=== PATIENT | female | born 1955 | race Asian ===

== ENCOUNTER 2019-06-26 07:45 | Emergency (ER) | payer OTHER ==
[~2019-06-26] VITALS: Ht 170.2 cm; Wt 72.6 kg
[2019-06-26] MEDS ORDERED: Lidocaine 1% Plain 30 ml INJ ONE (08:15)
--- NOTE | 2019-06-26 08:16 | NUR ---
ED Nurse Note: Pt walked into ED s/p fall from bed. Pt has wound on L forehead with scant bleeding. Pt is alert dn orientedx4, ambulatory. She denies LOC or dizziness. Denies cough, fever, SOB. Pt is set up on monitor and has been seen by MD. GARCIA.
--- NOTE | 2019-06-26 08:26 | NUR ---
ED Nurse Note: EKG completed and blood sent to lab.
[2019-06-26 08:27] VITALS: BP 114/50
[2019-06-26 09:02] LABS: BASOPHILS % (AUTO) 1.3 % (0.0-2.0); EOSINOPHILS % (AUTO) 2.8 % (0.0-3.0); HEMATOCRIT 38.1 % (37.0-47.0); HEMOGLOBIN 12.8 G/DL (12.0-16.0); LYMPHOCYTES % (AUTO) 19.6 % (20.0-45.0); MEAN CORPUSCULAR VOLUME 90 FL (80-99); NEUTROPHILS % (AUTO) 68.3 % (45.0-75.0); PLATELET COUNT 139 K/UL (150-450); RED BLOOD COUNT 4.24 M/UL (4.20-5.40); RED CELL DISTRIBUTION WIDTH 12.6 % (11.6-14.8); WHITE BLOOD COUNT 5.4 K/UL (4.8-10.8)
[2019-06-26 09:14] LABS: INR 0.9 (0.9-1.1)
--- NOTE | 2019-06-26 09:25 | Emergency Room Report ---
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 Denies any visual changes denies any focal weakness Patient describes a fairly purely mechanical fall in nature Allergies: Coded Allergies: CITRIC ACID (Verified Allergy, Unknown, 06/26/19) MILK (Verified Allergy, Unknown, 06/26/19) Wheat (Verified Allergy, Unknown, 06/26/19) COVID-19 Screening Contact w/high risk pt: No Recent Travel to affected area: No Experienced COVID-19 symptoms?: No Patient History Past Medical History: see triage record Last Menstrual Period: 20 years ago Reviewed Nursing Documentation: PMH: Agreed; PSxH: Agreed Nursing Documentation-PMH Past Medical History: No History, Except For History Of Psychiatric Problem: Yes - depression Review of Systems All Other Systems: negative except mentioned in HPI Physical Exam Vital Signs Date Time Temp Pulse Resp B/P (MAP) Pulse Ox O2 Delivery O2 Flow Rate FiO2 06/26/19 08:08 98.6 72 12 117/52 (73) 100 Room Air 06/26/19 08:27 97 Sp02 EP Interpretation: reviewed, normal General Appearance: well appearing Head: other - Approximately 2 cm laceration V-shaped in the left temporal area , associated ecchymosis and swelling Eyes: bilateral eye PERRL ENT: EOM grossly intact Neck: supple Respiratory: lungs clear, no respiratory distress, no retraction Cardiovascular #1: regular rate, rhythm Gastrointestinal: non tender, soft Musculoskeletal: normal inspection Neurologic: alert, oriented x3 Psychiatric: normal inspection Skin: other - As above approximately 2 cm laceration left temporal area Lymphatic: no adenopathy Procedures Laceration/Wound Repair Laceration/Wound Repair : Consent: Emergent Wound Location: face Wound's Depth, Shape: into muscle Wound Length (cm): 2 Wound Explored: clean Irrigated w/ Saline (ccs): 200 Betadine Prep?: Yes Anesthesia: 1% Lidocaine Volume Anesthetic (ccs): 4 Wound Debrided: minimal Wound Repaired With: sutures Suture Size/Type: 6:0 Number of Sutures: 7 Layer Closure?: No Patient Tolerated: Well Complications: None Progress Fairly complex laceration in a V-shaped just above the eyebrow involving the facial region as well,, patient tolerated the procedure well and we had good approximation Medical Decision Making Diagnostic Impression: Primary Impression: Head injury Additional Impression: Laceration ER Course Given the patient's history and presentation multiple differentials including but not limited to cardiac, neurological neurosurgical differentials entertained , Patient has significant trauma to the facial area also involving the temporal area with associated hematoma I felt that given her presentation age In the examination she requires CT imaging of the brain CT head does not show any acute process Patient's blood work is also appropriate laceration was repaired as noted above Patient remains neurologically oriented and appropriate throughout her stay She is staying with 2 family members at this time and is stable for close outpatient follow-up Labs Test 06/26/19 08:25 White Blood Count 5.4 K/UL (4.8-10.8) Red Blood Count 4.24 M/UL (4.20-5.40) Hemoglobin 12.8 G/DL (12.0-16.0) Hematocrit 38.1 % (37.0-47.0) Mean Corpuscular Volume 90 FL (80-99) Mean Corpuscular Hemoglobin 30.1 PG (27.0-31.0) Mean Corpuscular Hemoglobin Concent 33.4 G/DL (32.0-36.0) Red Cell Distribution Width 12.6 % (11.6-14.8) Platelet Count 139 K/UL (150-450) Mean Platelet Volume 6.6 FL (6.5-10.1) Neutrophils (%) (Auto) 68.3 % (45.0-75.0) Lymphocytes (%) (Auto) 19.6 % (20.0-45.0) Monocytes (%) (Auto) 8.0 % (1.0-10.0) Eosinophils (%) (Auto) 2.8 % (0.0-3.0) Basophils (%) (Auto) 1.3 % (0.0-2.0) Prothrombin Time 9.8 SEC (9.30-11.50) Prothromb Time International Ratio 0.9 (0.9-1.1) Sodium Level 140 MMOL/L (136-145) Potassium Level 3.8 MMOL/L (3.5-5.1) Chloride Level 103 MMOL/L (98-107) Carbon Dioxide Level 28 MMOL/L (21-32) Anion Gap 9 mmol/L (5-15) Blood Urea Nitrogen 17 mg/dL (7-18) Creatinine 0.8 MG/DL (0.55-1.30) Estimat Glomerular Filtration Rate > 60 mL/min (>60) Glucose Level 92 MG/DL (74-106) Calcium Level 9.1 MG/DL (8.5-10.1) Total Bilirubin 0.7 MG/DL (0.2-1.0) Aspartate Amino Transf (AST/SGOT) 22 U/L (15-37) Alanine Aminotransferase (ALT/SGPT) 23 U/L (12-78) Alkaline Phosphatase 78 U/L (46-116) Total Protein 7.9 G/DL (6.4-8.2) Albumin 3.6 G/DL (3.4-5.0) Globulin 4.3 g/dL Albumin/Globulin Ratio 0.8 (1.0-2.7) Rhythm Strip Diag. Results EP Interpretation: yes Rate: 77 Rhythm: NSR, no PVC's, no ectopy CT/MRI/US Diagnostic Results CT/MRI/US Diagnostic Results : Impression CT headIMPRESSION: No acute findings in the head/brain. Last Vital Signs Date Time Temp Pulse Resp B/P (MAP) Pulse Ox O2 Delivery O2 Flow Rate FiO2 06/26/19 08:27 75 14 Room Air 97 06/26/19 08:27 98.6 114/50 97 Status: improved Disposition: HOME, SELF-CARE Condition: Improved Scripts Cephalexin* (KEFLEX*) 500 Mg Capsule 500 MG ORAL EVERY 8 HOURS for 7 Days, CAP Prov: Chun Rodriguez DO 06/26/19 Referrals: NON PHYSICIAN (PCP) Additional Instructions: Patient is provided with the discharge instructions notified to follow up with primary doctor in the next 2-3 days otherwise return to the er with any worsening symptoms. Please note that this report is being documented using [employer] technology. This can lead to erroneous entry secondary to incorrect interpretation by the dictating instrument. Chun Rodriguez DO Jun 26, 2019 09:25
--- NOTE | 2019-06-26 09:26 | NUR ---
ED Nurse Note: Pt taken to CT.
[2019-06-26] MEDS ORDERED: Bacitracin Oint UD TOPIC ONE (09:30)
[2019-06-26 09:33] LABS: ANION GAP 9 mmol/L (5-15); BLOOD UREA NITROGEN 17 mg/dL (7-18); CALCIUM 9.1 MG/DL (8.5-10.1); CARBON DIOXIDE 28 MMOL/L (21-32); CHLORIDE 103 MMOL/L (98-107); CREATININE 0.8 MG/DL (0.55-1.30); POTASSIUM 3.8 MMOL/L (3.5-5.1); SODIUM 140 MMOL/L (136-145)
[2019-06-26 09:41] LABS: ALANINE AMINOTRANSFERASE 23 U/L (12-78); ALBUMIN 3.6 G/DL (3.4-5.0); ALBUMIN/GLOBULIN RATIO 0.8 (1.0-2.7); ALKALINE PHOSPHATASE 78 U/L (46-116); ASPARTATE AMINO TRANSFERASE 22 U/L (15-37); BILIRUBIN,TOTAL 0.7 MG/DL (0.2-1.0)
[2019-06-26] MEDS ORDERED: CEPHALEXIN500 MG ORAL (09:44)
[2019-06-26] MEDS ORDERED: Cephalexin 500mg cap ORAL ONE (09:45)
--- NOTE | 2019-06-26 09:52 | Diagnostic Imaging Report ---
EXAM: CT Head Without Intravenous Contrast CLINICAL HISTORY: TRAUMA TECHNIQUE: Axial computed tomography images of the head/brain without intravenous contrast. CTDI is 53 mGy and DLP is 1045 mGy-cm. One or more of the following dose reduction techniques were used: automated exposure control, adjustment of the mA and/or kV according to patient size, use of iterative reconstruction technique. COMPARISON: No relevant prior studies available. FINDINGS: Brain: Unremarkable. No hemorrhage. No significant white matter disease. No edema. Ventricles: Unremarkable. No ventriculomegaly. Bones/joints: Unremarkable. No acute fracture. Soft tissues: There is a left frontal scalp laceration/hematoma. Sinuses: Unremarkable as visualized. No acute sinusitis. Mastoid air cells: Unremarkable as visualized. No mastoid effusion. IMPRESSION: No acute findings in the head/brain.
--- NOTE | 2019-06-26 10:05 | NUR ---
ER DISCHARGE NOTE: Patient is cleared to be discharged per ERMD, pt is aox4, on room air, with stable vital signs. pt was given dc and prescription instructions, pt was able to verbalize understanding, pt id band and iv site removed without complications. pt is able to ambulate with steady gait. pt took all belongings. Pt educated on lacerations and wound care and f/u visit.
[2019-06-26 10:06] VITALS: BP 118/53
== END 2019-06-26 10:07 | disposition home or self-care (01) ==
LOC: EMR 08:15
DX: S09.90XA Unspecified injury of head, initial encounter (principal); S01.81XA Laceration without foreign body of other part of head, initial encounter; W01.0XXA Fall on same level from slipping, tripping and stumbling without subsequent striking against object, initial encounter; Y92.9 Unspecified place or not applicable; Z91.011 Allergy to milk products; Z91.018 Allergy to other foods; F32.9 Major depressive disorder, single episode, unspecified
CPT/HCPCS: 13131; 36415; 70450; 80053; 85025; 85610; 93005; 99284; J2001